=== PATIENT | female | born 1960 | race African-American/Black ===

== ENCOUNTER 2017-01-22 10:46 | Emergency (ER) | payer MEDICAID, OTHER ==
[~2017-01-22] VITALS: Ht 165.1 cm; Wt 67.1 kg
[~2017-01-22 10:46] MED LIST: NORCO 10/3251 EA ORAL
[2017-01-22 11:05] VITALS: BP 113/71
[2017-01-22] MEDS ORDERED: CIPRO500 MG PO (11:47)
[2017-01-22] MEDS ORDERED: TRAMADOL HCL50 MG ORAL (11:47)
[2017-01-22] MEDS ORDERED: TYLENOL325 MG ORAL (11:47)
[2017-01-22] MEDS ORDERED: CIPRODEX OTIC7.5 M1 LEFT EAR (11:47)
--- NOTE | 2017-01-22 11:49 | Emergency Room Report ---
History of Present Illness General Chief Complaint: Earache Source: Patient Present Illness HPI L ear pain 3 weeks. Initially treated with home remedy (anthony sierra). Now with increased pain and some drainage. Some change in hearing. No sore throat. No cough. Slight headache. Pain 10/10 constant and throbbing. Allergic to motrin. Has been in pool for rehab of LE arthritis. No fevers. Allergies: Coded Allergies: IBUPROFEN (Unverified Allergy, Intermediate, 09/09/14) ABD PAIN Patient History Past Medical History: see triage record Social History: Denies: smoking Social History Narrative uses walker Reviewed Nursing Documentation: PMH: Agreed, PSxH: Agreed Nursing Documentation-PMH Hx Cardiac Problems: No - ARTHRITIS Hx Hypertension: No Hx Pacemaker: No Hx Asthma: No Hx COPD: No Hx Diabetes: No Hx Cancer: No Hx Gastrointestinal Problems: Yes - DIARRHEA Hx Dialysis: No Hx Cerebrovascular Accident: No Hx Seizures: No Review of Systems All Other Systems: negative except mentioned in HPI Physical Exam Vital Signs Date Time Temp Pulse Resp B/P Pulse Ox O2 Delivery O2 Flow Rate FiO2 01/22/17 10:55 98.4 79 15 113/71 96 Room Air Sp02 EP Interpretation: reviewed, normal General Appearance: well appearing, no apparent distress, GCS 15 Head: normocephalic, atraumatic Eyes: bilateral eye PERRL, bilateral eye normal inspection ENT: normal pharynx, normal voice, other - L TM with fluid and canal erythema, minimal tend with pull on lobe - no perf identified Neck: full range of motion, supple Respiratory: normal breath sounds, no respiratory distress, speaking full sentences Cardiovascular #2: 2+ radial (L) Musculoskeletal: no calf tenderness Neurologic: alert, normal gait, grossly normal Psychiatric: mood/affect normal Skin: no rash Medical Decision Making Diagnostic Impression: Primary Impression: Earache, left Additional Impression: Narcotic dependence ER Course Patient with L ear pain and drainage. Ddx: OM, OE, perforation (not seen). Antibiotics indicated. Patient stable for outpatient observation and treatment. After patient left, above dx of narcotic abuse noted. Cures reviewed with recent activity 12/28 with 2 Rxs of norco filled (chronically fill). In last 10 years sparse visits here to ED. This is a new complaint. Last Vital Signs Date Time Temp Pulse Resp B/P Pulse Ox O2 Delivery O2 Flow Rate FiO2 01/22/17 12:10 98.4 15 113/71 96 Room Air 01/22/17 10:55 79 Status: unchanged Disposition: HOME, SELF-CARE Condition: Stable Scripts Ciprofloxacin Hcl/Dexameth (CIPRODEX OTIC SUSPENSION) 7.5 Ml Drops.susp 4 DROP LEFT EAR TWICE A DAY for 7 Days, ML Prov: Toni Bell M.D. 01/22/17 Ciprofloxacin* (CIPRO*) 500 Mg Tablet 500 MG PO BID, #14 TAB Prov: Toni Bell M.D. 01/22/17 Acetaminophen (Tylenol) 325 Mg Tablet 650 MG ORAL Q6H Y for Prn Pain/Headache/Temp > 101, #20 TAB 0 Refills Prov: Toni Bell M.D. 01/22/17 Tramadol Hcl* (ULTRAM*) 50 Mg Tablet 50 MG ORAL Q6H Y for For Pain, #14 TAB 0 Refills Prov: Toni Bell M.D. 01/22/17 Referrals: NON PHYSICIAN (PCP) Patient Instructions: Otitis Externa, Otitis Media, Adult Additional Instructions: Keep your head out of the water. OK to take tylenol. Toni Bell M.D. January 22, 2017 11:49
[2017-01-22 12:10] VITALS: BP 113/71
== END 2017-01-22 12:23 | disposition home or self-care (01) ==
LOC: EMR 11:30
DX: H92.02 Otalgia, left ear (principal); F19.20 Other psychoactive substance dependence, uncomplicated; Z88.6 Allergy status to analgesic agent; M19.90 Unspecified osteoarthritis, unspecified site
CPT/HCPCS: 99284